=== PATIENT | female | born 1990 | race Caucasian/White ===

== ENCOUNTER 2024-11-02 17:01 | Emergency (ER) | payer OTHER ==
[2024-11-02 17:33] LABS: BASOPHILS ABSOLUTE AUTO 0.05 K/uL (0.00-0.20); BASOPHILS PERCENT AUTO 0.5 % (0.0-2.0); EOSINOPHILS ABSOLUTE AUTO 0.05 K/uL (0.00-0.50); EOSINOPHILS PERCENT AUTO 0.5 % (0.0-5.0); HEMATOCRIT 40.2 % (34.0-46.0); HEMOGLOBIN 14.3 g/dL (11.7-15.5); IMMATURE GRAN ABSOLUTE AUTO 0.04 10^3/uL (0.00-0.04); IMMATURE GRAN PERCENT AUTO 0.4 % (0.0-0.4); LYMPHOCYTES ABSOLUTE AUTO 1.85 K/uL (0.50-3.50); MEAN CORPUSCULAR HEMOGLOBIN 29.8 pg (28.2-33.3); MEAN CORPUSCULAR HGB CONC 35.6 g/dL (31.7-36.0); MEAN CORPUSCULAR VOLUME 83.8 fL (84.0-98.0); MONOCYTES ABSOLUTE AUTO 0.53 K/uL (0.00-1.00); MONOCYTES PERCENT AUTO 5.2 % (2.0-14.0); NEUTROPHILS ABSOLUTE AUTO 7.75 K/uL (1.40-7.00); NEUTROPHILS PERCENT AUTO 75.4 % (45.0-80.0); PLATELET COUNT,PLT 223 K/uL (150-350); RED CELL DISTRIBUTION WIDTH 11.9 % (11.2-14.1); WHITE BLOOD CELL COUNT,WBC 10.3 K/uL (4.0-10.2)
[2024-11-02] MEDS ORDERED: Sodium Chloride 0.9% 10 ML Syringe FLUSH PRN (17:33)
[2024-11-02 17:35] VITALS: BP 133/79; PULSE 100
[2024-11-02] MEDS: Sodium Chloride 0.9% 1,000 ML IV ONE (17:46)
[2024-11-02 17:50] LABS: PROTHROMBIN TIME 10.4 SEC (9.0-11.1)
[2024-11-02] MEDS: Ketorolac 15 MG/ML SDV IVPUSH ONE (17:52)
[2024-11-02 17:54] LABS: ALANINE AMINOTRANSFERASE,ALT 25 U/L (12-78); ALBUMIN 4.1 g/dL (3.4-5.0); ALKALINE PHOSPHATASE 63 IU/L (46-116); ASPARTATE AMNIOTRANSFERASE,AST 21 U/L (15-37); BILIRUBIN TOTAL 0.7 mg/dL (0.2-1.0); BLOOD UREA NITROGEN,BUN 15 mg/dL (7-18); CALCIUM 9.2 mg/dL (8.5-10.1); CARBON DIOXIDE,CO2 22.3 mmol/L (21.0-32.0); CHLORIDE,CL 102 mmol/L (98-107); CREATININE 0.87 mg/dL (0.51-1.17); GLUCOSE RANDOM 88 mg/dL (70-99); MAGNESIUM 1.9 mg/dL (1.8-2.4); POTASSIUM,K 3.4 mmol/L (3.5-5.1); SODIUM,NA 138 mmol/L (136-145)
[2024-11-02 17:55] LABS: ANION GAP 17.1 meq/L (7-15); ESTIMATED GFR 89 mL/min (>=60)
[2024-11-02] MEDS: diphenhydrAMINE 50 MG/ML SDV IVPUSH ONE (17:58)
[2024-11-02] MEDS: Prochlorperazine 10 MG/2 ML SDV IV ONE (18:18)
[2024-11-02 18:28] LABS: AMPHETAMINES SCREEN, URINE POSITIVE (NEGATIVE); BARBITURATE SCREEN,URINE NEGATIVE (NEGATIVE); BENZODIAZEPINES SCREEN,URINE NEGATIVE (NEGATIVE); COCAINE METABOLITES,URINE NEGATIVE (NEGATIVE); EDDP,URINE SCREEN NEGATIVE (NEGATIVE); METHAMPHETAMINES SCREEN, URINE NEGATIVE (NEGATIVE); TCA SCREEN,URINE NEGATIVE (NEGATIVE); THC SCREEN,URINE 50 NG/ML NEGATIVE (NEGATIVE)
[2024-11-02 18:29] LABS: BUPRENORPHINE SCREEN,URINE NEGATIVE (NEGATIVE); OXYCODONE SCREEN,URINE NEGATIVE (NEGATIVE)
[2024-11-02] MEDS: Potassium Bicarbonate/Cit Ac 20 MEQ Effervescent Tab PO ONE (19:02)
== END 2024-11-02 19:50 | disposition home or self-care (01) ==
LOC: LL.ED 17:01
DX: R55 Syncope and collapse (principal); G43.909 Migraine, unspecified, not intractable, without status migrainosus; F07.81 Postconcussional syndrome; R41.2 Retrograde amnesia; Z79.899 Other long term (current) drug therapy; Z88.8 Allergy status to other drugs, medicaments and biological substances
CPT/HCPCS: 36415; 70450; 80053; 80305-QW; 80307; 83735; 85025; 85610; 93005; 96361; 96374; 96375; 99284-25; A9270-GY; J0780; J1200; J1885; J7030